=== PATIENT | male | born 1985 | race Caucasian/White ===

== ENCOUNTER 2021-03-10 17:25 | Emergency (ER) | payer OTHER, SELFPAY ==
[2021-03-10 17:27] VITALS: BP 118/71; PULSE 88; RESP 20; TEMP 36.9; O2SAT 100
--- NOTE | 2021-03-10 17:31 | ECG_ITS ---
Measurements Intervals [place] Rate: 83 P: 65 UT: 188 QRS: 48 QRSD: 109 T: 57 QT: 348 QTc: 410 Interpretive Statements SINUS RHYTHM POSSIBLE LEFT ATRIAL ENLARGEMENT ST ELEVATION IN ANTEROLATERAL LEADS- PROBABLY EARLY REPOLARIZATION BORDERLINE T WAVE ABNORMALITY- HIGH LATERAL LEADS BORDERLINE ECG Electronically Signed On 03-10-2021 20:05:45 CDT by Bret Wynn D.O.
[2021-03-10 17:55] LABS: Basophils Absolute Auto 0.1 K/mm3 (0.0-0.1); Eosinophils Absolute Auto 0.3 K/mm3 (0-0.3); Hematocrit 42.2 % (42.0-52.0); Hemoglobin 14.2 g/dL (14.0-18.0); Immature Granulocyte Absolute 0.03 K/mm3 (0.00-0.031); Immature Granulocyte Percent A 0.3 % (0-0.5); Lymphocytes Absolute Auto 2.35 K/mm3 (0.9-3.2); Lymphocytes Percent Auto 25.5 % (18.3-44.2); Mean Corpuscular HGB Conc 33.6 g/dl (32-36); Mean Corpuscular Hemoglobin 29.5 pg (26-34); Mean Corpuscular Volume 87.7 fl (80-100); Mean Platelet Volume 10.7 fl (7.4-10.4); Monocytes Absolute Auto 0.6 K/mm3 (0.1-0.6); Monocytes Percent Auto 6.6 % (2.6-8.5); Neutrophils Absolute Auto 5.8 K/mm3 (1.3-6.7); Neutrophils Percent Auto 63.6 % (45.5-73.1); Platelet Count Result 217 k/mm3 (150-375); Red Blood Count 4.81 M/mm3 (4.6-6.20); Red Cell Distribution Width 12.5 % (11.5-14.5); White Blood Count 9.2 K/mm3 (4.5-10.0)
[2021-03-10 18:04] LABS: Anion Gap 10 mmol/L (8-16); Blood Urea Nitrogen 15 mg/dL (9-20); Calcium 9.8 mg/dL (8.4-10.2); Carbon Dioxide 24 mmol/L (22-30); Chloride 104 mmol/L (98-107); Estimated CRCL calculation 94 ml/min; Estimated Glomerular Filt Rate > 60; Glucose 142 mg/dL (65-110); Potassium 3.6 mmol/L (3.4-5.0); Sodium 138 mmol/L (137-145)
--- NOTE | 2021-03-10 19:33 | PC.NURSE ---
pt left without being seen. pt states he feels better and is going to see his primary care provider in the morning. pt educated to return if symptoms worsen. IV was placed by ems and removed before pt left.
== END 2021-03-10 19:33 | disposition left against medical advice (07) ==
LOC: ANHED 19:55
PROVIDERS: Emergency Provider Emergency Medicine
DX: R55 Syncope and collapse (principal)
CPT/HCPCS: 36415; 80048; 85025; 93005; 99199

== ENCOUNTER 2025-07-10 08:05 | Outpatient (CLI) | payer BC, SELFPAY ==
--- NOTE | ~2025-07-10 | XR_ITS ---
XR knee RT min 4V 07/10/2025 08:26 Indication: Right knee pain Procedure: 4 views right knee Comparison: No prior studies for comparison. Findings: No fracture, subluxation or dislocation. No significant joint effusion. Normal alignment. No foreign bodies. Impression: 1: No significant bone or joint abnormality. Reviewed, dictated and finalized at location O. NG SETTER Impression: 1: No significant bone or joint abnormality.
== END 2025-07-10 08:06 | disposition home or self-care (01) ==
LOC: GOSHIMG 08:06
PROVIDERS: PCP Nurse Practitioner Family; Visit Provider Nurse Practitioner Family
DX: M25.461 Effusion, right knee (principal)
CPT/HCPCS: 73564